=== PATIENT | female | born 1955 | race Two or more races ===

== ENCOUNTER 2019-03-29 22:25 | Emergency (ER) | payer MEDICAID, OTHER ==
[~2019-03-29] VITALS: Ht 160 cm; Wt 72.6 kg
[2019-03-29] MEDS ORDERED: ONDANSETRON HCL/PF 4 MG/2 ML VIAL ONE (22:44)
[2019-03-29] MEDS ORDERED: MORPHINE SULFATE INJ 4 MG/ML DISP.SYRIN ONE (22:45)
--- NOTE | 2019-03-29 22:48 | NUR ---
PT CAME TO ER BED 10 C/O ABDOMINAL PAIN SINCE 1600. PT STATES THAT SHE HAS A SHARP LOWER ABDOMEN PAIN. PT HAS A LEFT COLOSTOMY BAG. DENIES NAUSEA AND VOMITING. AAOX4. NO SOB. BREATHING EVENLY AND UNLABORED.
[2019-03-29 22:56] LABS: BASOPHILS # (AUTO) 0.1 /CMM (0.0-0.2); BASOPHILS % (AUTO) 1.2 % (0.0-2.0); EOSINOPHILS % (AUTO) 2.2 % (0.0-6.0); HEMATOCRIT 39 % (33-45); HEMOGLOBIN 12.6 g/dL (11.5-14.8); LYMPHOCYTES # (AUTO) 0.7 /CMM (0.8-4.8); LYMPHOCYTES % (AUTO) 12.1 % (20.0-44.0); MEAN CORPUSCULAR HGB CONC 32 g/dl (31.0-36.0); MEAN CORPUSCULAR VOLUME 85 fL (82-100); MONOCYTES # (AUTO) 0.5 /CMM (0.1-1.30); NEUTROPHILS # (AUTO) 4.4 /CMM (1.8-8.9); NEUTROPHILS % (AUTO) 76.5 % (43.0-81.0); PLATELET COUNT (AUTO) 193 /CMM (150-450); RED BLOOD CELL COUNT(AUTO) 4.58 MIL/uL (4.0-5.2); WHITE BLOOD COUNT (AUTO) 5.7 K/uL (4.3-11.0)
[2019-03-29] MEDS ORDERED: MORPHINE SULFATE INJ 2 MG/ML DISP.SYRIN IV ONE (23:00)
[2019-03-29] MEDS ORDERED: ONDANSETRON HCL/PF 4 MG/2 ML VIAL IVP ONE (23:00)
[2019-03-29] MEDS ORDERED: IV NS 0.9% 500 ML BAG IV ONE (23:00)
--- NOTE | 2019-03-29 23:03 | NUR ---
patient sent to ct via [facility]
[2019-03-29 23:08] LABS: CALCIUM, SERUM 9.1 mg/dL (8.5-10.1); CARBON DIOXIDE 30 mmol/L (21-32); CHLORIDE 103 mmol/L (98-107); GLUCOSE 291 mg/dL (74-106); POTASSIUM 4.2 mmol/L (3.5-5.1); SODIUM SERUM 140 mmol/L (136-145); UREA NITROGEN, BLOOD 24 mg/dL (7-18)
[2019-03-29 23:16] LABS: ALANINE AMINOTRANSFERASE 16 U/L (12-78); ALBUMIN 3.5 g/dL (3.4-5.0); ALKALINE PHOSPHATASE 97 U/L (46-116); ASPARTATE AMINOTRANSFERASE 14 U/L (15-37); BILIRUBIN,DIRECT 0.1 mg/dL (0.0-0.2); BILIRUBIN,TOTAL 0.3 mg/dL (0.2-1.0); LIPASE 137 U/L (73-393); TOTAL PROTEIN, SERUM 7.5 g/dL (6.4-8.2)
--- NOTE | 2019-03-29 23:20 | NUR ---
returned from ct.
--- NOTE | 2019-03-29 23:47 | NUR ---
URINE COLLECTED AND SENT TO LAB FOR TESTING
[2019-03-29 23:58] LABS: APPEARANCE,URINE Clear (CLEAR); BILIRUBIN,URINE Negative (NEGATIVE); BLOOD, URINE Small Ery/uL (NEGATIVE); COLOR,URINE Yellow (YELLOW); KETONES,URINE Trace (NEGATIVE); LEUKOCYTE ESTERASE ,URINE Negative (NEGATIVE); NITRITE, URINE Negative (NEGATIVE); PROTEIN,URINE >=300 mg/dl (NEGATIVE); UGLUCOSE 250 MG/DL mg/dL (NEGATIVE); UROBILINOGEN,URINE 0.2 EU/dL (0.2)
--- NOTE | 2019-03-30 00:07 | NUR ---
GAVE MOVESHEET AND CLINICALS TO ADMITTING FOR INSURANCE AUTH
--- NOTE | 2019-03-30 00:14 | NUR ---
PER ADMITTING, AWAITING CALL BACK FROM CM
[2019-03-30 00:36] LABS: BACTERIA,URINE Few /HPF (None Seen); SQUAMOUS EPITHELIAL CELL,UR Few /HPF (None Seen)
[2019-03-30 00:59] VITALS: BP 127/83
[2019-03-30] MEDS ORDERED: MORPHINE SULFATE INJ 2 MG/ML DISP.SYRIN ONE ×3 (01:56→02:37)
[2019-03-30] MEDS ORDERED: MORPHINE SULFATE INJ 2 MG/ML DISP.SYRIN IV ONE ×2 (02:00→03:00)
--- NOTE | 2019-03-30 02:11 | NUR ---
[facility] room [phone] number for report [phone], accepting MD: Dr. Sargent Addendum: 03/30/19 at 0400 by FLAKITA CORRECTION: [facility]
--- NOTE | 2019-03-30 02:20 | NUR ---
CALLED FOR REPORT, NURSE IS ON BREAK, WILL CALL BACK IN 10 MINUTES.
--- NOTE | 2019-03-30 02:24 | NUR ---
ETA: ONE HOUR FROM NOW
--- NOTE | 2019-03-30 02:56 | NUR ---
REPORT GIVEN TO DONATO LEE AT [facility] FOR [facility].
--- NOTE | 2019-03-30 03:15 | NUR ---
REPORT GIVEN TO TRANSPORT TEAM FOR [facility]. AND TRANSFER RESPONSIBILITIES.
== END 2019-03-30 03:46 | disposition short-term general hospital (02) ==
LOC: ER 22:26
DX: K56.600 Partial intestinal obstruction, unspecified as to cause (principal); I10 Essential (primary) hypertension; E78.5 Hyperlipidemia, unspecified; E11.9 Type 2 diabetes mellitus without complications; F17.200 Nicotine dependence, unspecified, uncomplicated; Z93.3 Colostomy status; Z85.3 Personal history of malignant neoplasm of breast; Z85.038 Personal history of other malignant neoplasm of large intestine
CPT/HCPCS: 36415 ×2; 71045 ×2; 74176; 80048; 80076; 81001; 83605 ×2; 83690; 84484; 85025; 85730; 87040 ×2; 87081; 87086; 93005; 96374; 96375; 96376; 99285; J2270 ×2; J2405; J7040; 81000-TC; J7030